=== PATIENT | male | born 1935 | race Caucasian/White ===

== ENCOUNTER 2016-12-12 11:44 | Observation (INO) | payer OTHER ==
[2016-12-12] MEDS ORDERED: SODIUM CHLORIDE 0.9% 10 ML FLUSH FLUSH PRN (12:02)
[2016-12-12] MEDS ORDERED: NS 1,000 ML IV ONE (12:02)
--- NOTE | 2016-12-12 12:22 | DIRPT ---
CLINICAL DATA: Syncopal episode at temple. Chest pain. EXAM: PORTABLE CHEST 1 VIEW COMPARISON: 08/15/2016 FINDINGS: Prior median sternotomy for coronary bypass. Heart is enlarged with mild vascular congestion and basilar atelectasis. 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 No definite focal pneumonia, collapse or consolidation. No edema pattern, effusion, or pneumothorax. Trachea midline. Degenerative changes and scoliosis noted of the spine. Previous left rotator cuff repair. IMPRESSION: Stable cardiomegaly with vascular congestion and basilar atelectasis. Background COPD/emphysema and postoperative findings. No interval change or acute process. Electronically Signed By: Trini Velez M.D. On: 12/12/2016 12:20
[2016-12-12 12:35] LABS: AUTOMATED BASOPHIL 0.2 % (0-2); AUTOMATED EOSINOPHIL 1.6 % (0-5); AUTOMATED LYMPH 22.2 % (17-44); AUTOMATED MONOCYTE 8.7 % (3-10); AUTOMATED NEUTROPHIL 67.3 % (45-76); MPV 9.5 fL (7.4-10.4)
[2016-12-12 12:47] LABS: BLOOD UREA NITROGEN 17 MG/DL (9-20); CALC CORRECTED 8.9 MG/DL (8.4-10.2); CALCIUM 8.7 MG/DL (8.4-10.2); CALCULATED OSMOLALITY 269 MOs/Kg (270-290); CHLORIDE 103 mEq/L (98-107); GLUCOSE 160 MG/DL (70-99); SODIUM LEVEL 137 mEq/L (137-146); TOTAL PROTEIN 6.6 G/DL (6.3-8.2)
[2016-12-12 12:49] LABS: PARTIAL THROMB. TIME 23.6 SEC (22-35); PT-INR 1.1
--- NOTE | 2016-12-12 12:52 | EDPRACDOC ---
- History of Present Illness Medications/Treatment ELECTROLYTIC ETCHER Medications ELECTROLYTIC ETCHER (Medication/ saline 500cc bolus Dose/Time) EMS Treatment ALS IV Yes HPI: MD NOTE SEEN AND EXAMINED; SYNCOPE WITHOUT SEIZURE ACTIVITY HX OF AFIB AND WAS ON ELIQUIS. STOPPED BUT UNSURE WHY; STRESS LAST AUGUST REVIEWED. 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 Witnessed syncope: some twitching and gasping. EMS states pt was nonresponsive when they got there and remained so for >10 mins, also hypotensive, and bradycardic, with SOB. Pt was clutching left side chest on arrival, but states that it only hurts him when he coughs ( chronic cough). Pt also c/o chronic numbness and tingling in bilat hands, with chronic left leg pain. Pt states he felt fine prior to syncope, denies illness sx. Med hx = Afib, HTN, hx of CABG x 4, with most recent 8 yrs ago. Last stress test 08/15/16 NEG for ischemia, EF 56%. Pt states he has recently stopped taking levothyroxin. Duration: Minutes Presyncopal phase:: Reports: None Syncopal phase:: Reports: At Rest Postsyncopal phase:: Reports: Rapid recovery Prehospital care: Reports: O2 History of: Reports: Atrial Fibrillation, Syncope Associated Signs/Symptoms: Reports: SOB <Humble Peres - Last Filed: 12/12/16 19:02> - General Information Chief Complaint: Neuro Symptoms/Deficits Stated Complaint: SYNCOPE Home Medications: Home Medications Atorvastatin Calcium [Lipitor] 20 mg PO QHS 10/18/15 Diltiazem HCl [Cardizem] 120 mg PO DAILY #90 tablet 10/18/15 Lisinopril [Prinivil] 20 mg PO DAILY 10/18/15 Amiodarone HCl [Pacerone] 200 mg PO BID 08/16/16 Aspirin [Aspirin, Chewable] 81 mg PO DAILYWM #30 tablet 08/16/16 Ibuprofen Tablet [Motrin] 600 mg PO Q6H PRN 12/12/16 Levothyroxine Sodium [Levo-T] 75 mcg PO DAILY 12/12/16 Tamsulosin HCl [Flomax] 0.4 mg PO QHS 12/12/16 Allergies/Adverse Reactions: Allergies Allergy/AdvReac Type Severity Reaction Status Date / Time No Known Allergies Allergy Verified 08/15/16 18:11 - Treatment Prior to ED Arrival Reported Medications/Treatment ELECTROLYTIC ETCHER Medications ELECTROLYTIC ETCHER (Medication/ saline 500cc bolus Dose/Time) EMS Treatment ALS IV Yes <Cristopher Cordon - Last Filed: 12/12/16 13:18> - Treatment Prior to ED Arrival Reported Medications/Treatment ELECTROLYTIC ETCHER Medications ELECTROLYTIC ETCHER (Medication/ saline 500cc bolus Dose/Time) EMS Treatment ALS IV Yes <Humble Peres - Last Filed: 12/12/16 19:02> ED Past Medical History - History Reviewed Yes Nurses notes reviewed and agree except as marked - Patient Medical History Cardiac History: Reports: Coronary Artery Disease, Atrial Fibrillation, Hypertension, Heart Attack, Cardiac Catheterization (15 years ago), CABG (2007, and R carotid endarterectomy 2007), Hypercholesterolemia, Syncope Musculoskeletal History: Reports: Arthritis Psychological History: Denies: Depression, Substance Use Disorder Systemic History: Reports: Hypothyroidism. Denies: Cancer Surgical History: Reports: Appendectomy, CABG (2007, and R carotid endarterectomy 2007), Cardiac Catheterization (15 years ago), Other (Left cornea transplant in [place] then in [place].) - Family Medical History Denies: Hypertension, Diabetes, Cancer, Stroke, Cardiac Disorders - Social Medical History Smoking Status: Never smoker Social History: Denies: Substance Use Disorder <Humble Peres - Last Filed: 12/12/16 19:02> EDM Review of Systems - Review of Systems ROS Negative Except as Marked: Yes All systems reviewed and were negative except as marked Respiratory: Shortness of Breath Cardiovascular: Syncope <Humble Peres - Last Filed: 12/12/16 19:02> - Physical Exam Last recorded Vital Signs: Last Vital Signs Temp 98.4 F 12/12/16 11:49 Pulse 47 L 12/12/16 13:12 Resp 18 12/12/16 13:12 BP 106/57 L 12/12/16 13:12 Pulse Ox 98 12/12/16 13:12 Oxygen Pulse Oxygen Saturation 98 O2 Device Nasal Cannula Oxygen Flow Rate 2 Fraction of Inspired Oxygen ( FIO2) <Cristopher Cordon - Last Filed: 12/12/16 13:18> - Physical Exam Constitutional: No apparent distress, Alert Oriented to: Time, Person, Place Last recorded Vital Signs: Last Vital Signs Temp 98.4 F 12/12/16 11:49 Pulse 49 L 12/12/16 12:22 Resp 18 12/12/16 12:22 BP 110/58 L 12/12/16 12:22 Pulse Ox 92 12/12/16 12:22 Oxygen Pulse Oxygen Saturation 92 O2 Device Nasal Cannula Oxygen Flow Rate 2 Fraction of Inspired Oxygen ( FIO2) - HEENT Head: Normal Eye Exam: negative: Conjunctival Injection, Scleral Icterus Oropharynx: negative: Drooling TMJ: Normal Nose: No Symptoms Reported Neck: Normal - Respiratory/Cardiovascular Respiratory: Normal - CTA Cardiovascular: Bradycardia - GI Tenderness: Non tender - Musculoskeletal Back: Normal Extremities: Normal - Neurologic Mood Description: Normal Thought: Coherent Perception: Normal <Humble Peres - Last Filed: 12/12/16 19:02> - Results 12/12/16 11:58 12/12/16 11:58 WBC 7.2 xk/uL (3.8-10.8) 12/12/16 11:58 RBC 4.19 xM/uL (4.70-6.10) L 12/12/16 11:58 Hgb 14.2 g/dL (14.0-18.0) 12/12/16 11:58 Hct 41.4 % (42-52) L 12/12/16 11:58 MCV 99 fL (80-94) H 12/12/16 11:58 MCH 33.8 pg (27-32) H 12/12/16 11:58 MCHC 34.2 g/dl (33-36) 12/12/16 11:58 RDW 13.5 % (11.5-14.5) 12/12/16 11:58 Plt Count 156 xk/uL (130-400) 12/12/16 11:58 MPV 9.5 fL (7.4-10.4) 12/12/16 11:58 Neut % (Auto) 67.3 % (45-76) 12/12/16 11:58 Lymph % (Auto) 22.2 % (17-44) 12/12/16 11:58 Payne % (Auto) 8.7 % (3-10) 12/12/16 11:58 Eos % (Auto) 1.6 % (0-5) 12/12/16 11:58 Baso % (Auto) 0.2 % (0-2) 12/12/16 11:58 Absolute Neuts (auto) 4.82 xk/uL (1.7-8.2) 12/12/16 11:58 Absolute Lymphs (auto) 1.58 xk/uL (0.65-4.75) 12/12/16 11:58 PT 10.9 SEC (9.2-11.2) 12/12/16 11:58 INR 1.1 12/12/16 11:58 APTT 23.6 SEC (22-35) 12/12/16 11:58 Sodium 137 mEq/L (137-146) 12/12/16 11:58 Potassium 3.9 mEq/L (3.5-5.1) 12/12/16 11:58 Chloride 103 mEq/L (98-107) 12/12/16 11:58 Carbon Dioxide 25 mMOL/L (22-33) 12/12/16 11:58 Anion Gap 13 mEq/L (8-16) 12/12/16 11:58 BUN 17 MG/DL (9-20) 12/12/16 11:58 Creatinine 1.20 MG/DL (0.66-1.25) 12/12/16 11:58 Estimated GFR (MDRD) 58 mL/min (>=60) L 12/12/16 11:58 Glucose 160 MG/DL (70-99) H 12/12/16 11:58 Calculated Osmolality 269 MOs/Kg (270-290) L 12/12/16 11:58 Calcium 8.7 MG/DL (8.4-10.2) 12/12/16 11:58 Corrected Calcium 8.9 MG/DL (8.4-10.2) 12/12/16 11:58 Total Bilirubin 0.8 MG/DL (0.2-1.3) 12/12/16 11:58 AST 19 IU/L (17-59) 12/12/16 11:58 ALT 31 IU/L (21-72) 12/12/16 11:58 Alkaline Phosphatase 74 IU/L (50-160) 12/12/16 11:58 Troponin I < 0.01 ng/mL (<.04) 12/12/16 11:58 Ttm-D-Drkptphckkd Pept 308 pg/mL (0-1800) 12/12/16 11:58 Total Protein 6.6 G/DL (6.3-8.2) 12/12/16 11:58 Albumin 3.8 G/DL (3.5-5.0) 12/12/16 11:58 Lab Results 12/12/16 12/12/16 12/12/16 11:58 11:58 11:58 WBC 7.2 RBC 4.19 L Hgb 14.2 Hct 41.4 L MCV 99 H MCH 33.8 H MCHC 34.2 RDW 13.5 Plt Count 156 MPV 9.5 Neut % (Auto) 67.3 Lymph % (Auto) 22.2 Payne % (Auto) 8.7 Eos % (Auto) 1.6 Baso % (Auto) 0.2 Absolute Neuts (auto) 4.82 Absolute Lymphs (auto) 1.58 PT 10.9 INR 1.1 APTT 23.6 Sodium 137 Potassium 3.9 Chloride 103 Carbon Dioxide 25 Anion Gap 13 BUN 17 Creatinine 1.20 Estimated GFR (MDRD) 58 L Glucose 160 H Calculated Osmolality 269 L Calcium 8.7 Corrected Calcium 8.9 Total Bilirubin 0.8 AST 19 ALT 31 Alkaline Phosphatase 74 Troponin I < 0.01 Eui-K-Ogjlfumuicm Pept 308 Total Protein 6.6 Albumin 3.8 <Cristopher Cordon - Last Filed: 12/12/16 13:18> - Results 12/12/16 11:58 12/12/16 11:58 WBC 7.2 xk/uL (3.8-10.8) 12/12/16 11:58 RBC 4.19 xM/uL (4.70-6.10) L 12/12/16 11:58 Hgb 14.2 g/dL (14.0-18.0) 12/12/16 11:58 Hct 41.4 % (42-52) L 12/12/16 11:58 MCV 99 fL (80-94) H 12/12/16 11:58 MCH 33.8 pg (27-32) H 12/12/16 11:58 MCHC 34.2 g/dl (33-36) 12/12/16 11:58 RDW 13.5 % (11.5-14.5) 12/12/16 11:58 Plt Count 156 xk/uL (130-400) 12/12/16 11:58 MPV 9.5 fL (7.4-10.4) 12/12/16 11:58 Neut % (Auto) 67.3 % (45-76) 12/12/16 11:58 Lymph % (Auto) 22.2 % (17-44) 12/12/16 11:58 Payne % (Auto) 8.7 % (3-10) 12/12/16 11:58 Eos % (Auto) 1.6 % (0-5) 12/12/16 11:58 Baso % (Auto) 0.2 % (0-2) 12/12/16 11:58 Absolute Neuts (auto) 4.82 xk/uL (1.7-8.2) 12/12/16 11:58 Absolute Lymphs (auto) 1.58 xk/uL (0.65-4.75) 12/12/16 11:58 Sodium 137 mEq/L (137-146) 12/12/16 11:58 Potassium 3.9 mEq/L (3.5-5.1) 12/12/16 11:58 Chloride 103 mEq/L (98-107) 12/12/16 11:58 Carbon Dioxide 25 mMOL/L (22-33) 12/12/16 11:58 Anion Gap 13 mEq/L (8-16) 12/12/16 11:58 BUN 17 MG/DL (9-20) 12/12/16 11:58 Creatinine 1.20 MG/DL (0.66-1.25) 12/12/16 11:58 Estimated GFR (MDRD) 58 mL/min (>=60) L 12/12/16 11:58 Glucose 160 MG/DL (70-99) H 12/12/16 11:58 Calculated Osmolality 269 MOs/Kg (270-290) L 12/12/16 11:58 Calcium 8.7 MG/DL (8.4-10.2) 12/12/16 11:58 Corrected Calcium 8.9 MG/DL (8.4-10.2) 12/12/16 11:58 Total Bilirubin 0.8 MG/DL (0.2-1.3) 12/12/16 11:58 AST 19 IU/L (17-59) 12/12/16 11:58 ALT 31 IU/L (21-72) 12/12/16 11:58 Alkaline Phosphatase 74 IU/L (50-160) 12/12/16 11:58 Total Protein 6.6 G/DL (6.3-8.2) 12/12/16 11:58 Albumin 3.8 G/DL (3.5-5.0) 12/12/16 11:58 Lab Results 12/12/16 12/12/16 11:58 11:58 WBC 7.2 RBC 4.19 L Hgb 14.2 Hct 41.4 L MCV 99 H MCH 33.8 H MCHC 34.2 RDW 13.5 Plt Count 156 MPV 9.5 Neut % (Auto) 67.3 Lymph % (Auto) 22.2 Payne % (Auto) 8.7 Eos % (Auto) 1.6 Baso % (Auto) 0.2 Absolute Neuts (auto) 4.82 Absolute Lymphs (auto) 1.58 Sodium 137 Potassium 3.9 Chloride 103 Carbon Dioxide 25 Anion Gap 13 BUN 17 Creatinine 1.20 Estimated GFR (MDRD) 58 L Glucose 160 H Calculated Osmolality 269 L Calcium 8.7 Corrected Calcium 8.9 Total Bilirubin 0.8 AST 19 ALT 31 Alkaline Phosphatase 74 Total Protein 6.6 Albumin 3.8 - EKG EKG #1 EKG Time: 11:54 -: Yes EKG interpreted by me Rate: bpm: 50 Rhythm: SB Block: None Hypertrophy: None ST: Normal Comparison: 08/15/16 (Afib) - Diagnostic Imaging Chest Image interpreted by: Radiologist EXAM: PORTABLE CHEST 1 VIEW COMPARISON: 08/15/2016 FINDINGS: Prior median sternotomy for coronary bypass. Heart is enlarged with mild vascular congestion and basilar atelectasis. 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 No definite focal pneumonia, collapse or consolidation. No edema pattern, effusion, or pneumothorax. Trachea midline. Degenerative changes and scoliosis noted of the spine. Previous left rotator cuff repair. IMPRESSION: Stable cardiomegaly with vascular congestion and basilar atelectasis. Background COPD/emphysema and postoperative findings. No interval change or acute process. Electronically Signed By: Trini Velez M.D. On: 12/12/2016 12:20 <Humble Peres - Last Filed: 12/12/16 19:02> <Cristopher Cordon - Last Filed: 12/12/16 13:18> - Departure Disposition: Admit IP To This Hospital Decision to Admit Time: 14:03 (Dr Lucas) Decision to admit date: 12/12/16 Decision to admit: from ED <Humble Peres - Last Filed: 12/12/16 19:02> - Departure Condition: Stable Final Diagnosis: Syncope Qualifiers: Syncope type: unspecified Qualified Code(s): R55 - Syncope and collapse Hypothyroid Qualifiers: Hypothyroidism type: unspecified Qualified Code(s): E03.9 - Hypothyroidism, unspecified
[2016-12-12] MEDS: NS 1,000 ML IV SCH (14:30)
--- NOTE | 2016-12-12 14:45 | HISTPHYS ---
- Chief Complaint pt arrives via EMS with c/o syncope at [facility], unresponsive for greater than 10 minutes, family reports some shaking while unconscious, EMS said pt started to regain consciousness en route, pt c/o left sided chest discomfort, bilateral hand numbness, bilateral leg pain, generalized weakness - History of Present Illness C/o syncope >10 mins around 11:15am today. Witnessed syncope: some twitching and gasping. EMS states pt was nonresponsive when they got there and remained so for >10 mins, also hypotensive, and bradycardic, with SOB. Pt was clutching left side chest on arrival, but states that it only hurts him when he coughs ( chronic cough). Pt also c/o chronic numbness and tingling in bilat hands, with chronic left leg pain. Pt states he felt fine prior to syncope, denies illness sx. Med hx = Afib, HTN, hx of CABG x 4, with most recent 8 yrs ago. Last stress test 08/15/16 NEG for ischemia, EF 56%. Pt states he has recently stopped taking levothyroxin. Duration: Minutes Presyncopal phase:: Reports: None Syncopal phase:: Reports: At Rest Postsyncopal phase:: Reports: Rapid recovery Prehospital care: Reports: O2 History of: Reports: Atrial Fibrillation, Syncope Associated Signs/Symptoms: Reports: SOB Patient denies any per monitory symptoms whatsoever. He states his previous episodes of syncope were all with a warning. - Medical History Cardiac History: Reports: Coronary Artery Disease, Atrial Fibrillation, Hypertension, Heart Attack, Cardiac Catheterization (15 years ago), CABG (2007, and R carotid endarterectomy 2007), Hypercholesterolemia, Syncope Respiratory History: Reports: No Significant History GI/ History: Reports: No Significant History Musculoskeletal History: Reports: Arthritis Systemic History: Reports: Hypothyroidism. Denies: Cancer Psychological History: Denies: Depression, Substance Use Disorder - Surgical History Reports: Appendectomy, CABG (2007, and R carotid endarterectomy 2007), Cardiac Catheterization (15 years ago), Other (Left cornea transplant in [place] then in [place].) - Medictions/Allergies Allergies No Known Allergies Allergy (Verified 08/15/16 18:11) Home Medications Atorvastatin Calcium [Lipitor] 20 mg PO QHS 10/18/15 Diltiazem HCl [Cardizem] 120 mg PO DAILY #90 tablet 10/18/15 Lisinopril [Prinivil] 20 mg PO DAILY 10/18/15 Amiodarone HCl [Pacerone] 200 mg PO BID 08/16/16 Aspirin [Aspirin, Chewable] 81 mg PO DAILYWM #30 tablet 08/16/16 Ibuprofen Tablet [Motrin] 600 mg PO Q6H PRN 12/12/16 Levothyroxine Sodium [Levo-T] 75 mcg PO DAILY 12/12/16 Tamsulosin HCl [Flomax] 0.4 mg PO QHS 12/12/16 - Family History Denies: Hypertension, Diabetes, Cancer, Stroke, Cardiac Disorders - Social History Travel Outside of [place] in the Last 3 Months?: No Lives: Alone Smoking Status: Former smoker (Smoked 1 and half packs a day. Lately he smokes 1 cigar a day) Social History: Denies: Alcohol Use, Substance Use Disorder - Review of Systems Constitutional: No Symptoms Reported (No Fever, chills, wt loss/gain, diaphoresis,fatigue/malaise.) Eyes: No Symptoms Reported (No blurry vision, visual changes, eye pain, or eye redness.) Ears: No Symptoms Reported (No ear pain or discharge) Nose: No Symptoms Reported (No nasal discharge/congestion or bleeding) Mouth: No Symptoms Reported (No oropharyngeal lesions or erythema) Throat/Neck: No Symptoms Reported (No throat pain or swelling.No oropharyngeal lesions or erythema.) Respiratory: No Symptoms Reported (No cough, wheezing, or shortness of breath.) Cardiovascular: Syncope. negative: Cyanosis, Orthopnea, Palpitations, PND Gastrointestinal: No Symptoms Reported (No abdominal pain, nausea, vomiting, diarrhea, constipation, or bloody stool.) Genitourinary: No Symptoms Reported (No dysuria or hematuria.) Neurological: No Symptoms Reported (No headache, dizziness, seizures, or focal weakness.) Musculoskeletal:: No Symptoms Reported Integumentary: No Symptoms Reported (no rashes or lesions) Allergic/Immunologic: No Symptoms Reported (no rashes or lesions) Endocrine: No Symptoms Reported (No thyroid issues, polyuria, or polydipsia.) Psychiatric: No Symptoms Reported (Fully oriented, with normal and appropriate affect.) - Physical Exam Vital Signs: Initial Vitals Temperature 98.4 F 12/12/16 11:49 Pulse Rate 50 L 12/12/16 11:49 Respiratory Rate 18 12/12/16 11:49 Blood Pressure 99/51 L 12/12/16 11:49 Pulse Oxygen Saturation 91 12/12/16 11:49 Constitutional: Alert (Awake, Fully oriented. Normal and appropriate affect.Well appearing. Well nourished.), No apparent distress Oriented to: Time, Person, Place - HEENT Head: Normal (normocephalic, atraumatic.), Other (No cervical lymphadenopathy. No supraclavicular lymphadenopathy. Neck: No palpable mass, supple , trachea midline.) Eye: Normal (pupils equal, reactive to light, and round; EOMI, Sclera white) Oropharynx: Normal (Pharynx: Moist without exudate,Gums-no swelling, No oropharyngeal lesions or erythema, Mucous membranes are dry.) Nose: No Symptoms Reported (septum midline, Nares patent, without discharge or bleeding.) Respiratory: Normal - CTA (Clear to auscultation bilaterally. No wheezing, rales , rhonchi. Chest wall movements are symmetric. No use of accessory muscles to breathe.) Cardiovascular: Normal (RRR , Normal S1, S2. No murmurs, rubs, or gallops. PMI non-displaced. Carotids: no carotid bruits. No bradycardia or tachycardia. DP pulses 2+ bilaterally.) - GI Auscultation: Normal (normal active sounds) Palpation: Normal (Soft,non distended,nontender. No hepatosplenomegaly.) Tenderness: Non tender (No rebound or guarding) Arriaza's Sign: Negative - Musculoskeletal Back: Normal (Non-Tender) Extremities: Normal (Normal tone, DP pulses 2+ bilaterally, No cyanosis or edema bilaterally, FROM bilaterally.) - Integumentary Skin: Normal (Clean, dry, and intact. No rashes. No lesions.) Lymphatics: Normal (No cervical lymphadenopathy. No supraclavicular lymphadenopathy.) - Neurologic Memory Impaired: Normal Motor Function: Normal (Motor 5/5 throughout.Normal tone, Pulses 2+ No cyanosis or edema, FROM) Cranial Nerve: Normal (CN II-XII intact sensation, strength 5/5) Cerebellar: Normal (Babinski: toes downgoing bilaterally. Intact Finger to nose. Sensory grossly intact to light touch. Intact rapid alternating movements bilaterally. No pronator drift.) Mood Description: Normal (Fully oriented. Normal and appropriate affect.) Perception: Normal (Normal and appropriate affect.) - Focused CV Perfusion Exam Vital Signs: Last Vital Signs Temp 98.4 F 12/12/16 11:49 Pulse 48 L 12/12/16 14:08 Resp 18 12/12/16 14:08 BP 133/61 12/12/16 14:08 Pulse Ox 98 12/12/16 14:08 - Lab Results Laboratory Results - last 24 hr 12/12/16 12/12/16 12/12/16 11:58 11:58 11:58 WBC 7.2 RBC 4.19 L Hgb 14.2 Hct 41.4 L MCV 99 H MCH 33.8 H MCHC 34.2 RDW 13.5 Plt Count 156 MPV 9.5 Neut % (Auto) 67.3 Lymph % (Auto) 22.2 [place] % (Auto) 8.7 Eos % (Auto) 1.6 Baso % (Auto) 0.2 Absolute Neuts (auto) 4.82 Absolute Lymphs (auto) 1.58 PT 10.9 INR 1.1 APTT 23.6 Sodium 137 Potassium 3.9 Chloride 103 Carbon Dioxide 25 Anion Gap 13 BUN 17 Creatinine 1.20 Estimated GFR (MDRD) 58 L Glucose 160 H Calculated Osmolality 269 L Calcium 8.7 Corrected Calcium 8.9 Total Bilirubin 0.8 AST 19 ALT 31 Alkaline Phosphatase 74 Troponin I < 0.01 Miv-E-Qflzhbsethh Pept 308 Total Protein 6.6 Albumin 3.8 - Diagnostic Findings EXAM: PORTABLE CHEST 1 VIEW COMPARISON: 08/15/2016 FINDINGS: Prior median sternotomy for coronary bypass. Heart is enlarged with mild vascular congestion and basilar atelectasis. 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 No definite focal pneumonia, collapse or consolidation. No edema pattern, effusion, or pneumothorax. Trachea midline. Degenerative changes and scoliosis noted of the spine. Previous left rotator cuff repair. IMPRESSION: Stable cardiomegaly with vascular congestion and basilar atelectasis. Background COPD/emphysema and postoperative findings. No interval change or acute process. Electronically Signed By: Trini Velez M.D. On: 12/12/2016 12:20 EKG personally viewed by me shows a junctional rhythm at 50 beats per minute - Assessment (1) Syncope R55 - SYNCOPE AND COLLAPSE Acute Present on Admission: Yes Qualifiers: Syncope type: unspecified Encounter type: E Qualified Code(s): R55 - Syncope and collapse Patient with long history of coronary disease with an episode of recurrent syncope that is different from the past. This episode the patient did not have any premonitory symptoms he simply passed out and was out for approximately 10 minutes. He will be admitted to the hospital and placed on telemetry monitoring. Am concerned that he may have had a pulmonary embolism the D-dimer has been ordered. Monitor him very closely have discussed the case with Dr. MITCHELL who will evaluate the patient. (2) Hypotension I95.9 - HYPOTENSION, UNSPECIFIED Acute Present on Admission: Yes Qualifiers: Hypotension type: H Trimester: T There is no evidence of orthostatic hypotension. Blood pressure remains relatively low. Patient is on diltiazem and amiodarone. I will decrease dose of diltiazem. (3) Hypoxemia R09.02 - HYPOXEMIA Acute Present on Admission: Yes Patient's O2 sats low on presentation they are stable now on 2 L of oxygen will continue to monitor. (4) Atrial fibrillation with slow ventricular response I48.91 - UNSPECIFIED ATRIAL FIBRILLATION Acute Present on Admission: Yes Not a candidate for anticoagulation due to frequent episodes of syncope. Will continue current therapy with amiodarone. (5) Tobacco abuse Z72.0 - TOBACCO USE Acute Present on Admission: Yes Patient states he no longer smokes but he does smoke cigars. He has stop smoking cigarettes. (6) On amiodarone therapy Z79.899 - OTHER INSTITUTIONAL CUSTODIAN (CURRENT) DRUG THERAPY Chronic Present on Admission: Yes Noted continue present care. Case Care Discussed with: Patient, Nursing Staff Total Time: Sixty-five minutes Critical Care: No [place] Time (>50% in counseling/coordination): No
[2016-12-12] MEDS ORDERED: IBUPROFEN 600 MG TAB PO PRN (15:08)
[2016-12-12] MEDS ORDERED: ACETAMINOPHEN 325 MG/TAB TABLET PO PRN (15:09)
[2016-12-12] MEDS ORDERED: PROMETHAZINE 25 MG/ML VIAL IV PRN (15:09)
[2016-12-12] MEDS ORDERED: Aluminum;Magnesium;Simethicone 30 ML UDC PO PRN (15:09)
[2016-12-12] MEDS ORDERED: SODIUM CHLORIDE 0.9% 3 ML FLUSH FLUSH PRN (15:09)
[2016-12-12] MEDS ORDERED: MAGNESIUM HYDROXIDE 30 ML BOTTLE PO PRN (15:09)
[2016-12-12] MEDS ORDERED: Vaccine Screening Complete SCH (17:00)
[2016-12-12] MEDS: SODIUM CHLORIDE 0.9% 3 ML FLUSH FLUSH SCH (17:53)
[2016-12-12] MEDS ORDERED: ENOXAPARIN 40 MG/0.4 ML PFS SQ SCH (18:00)
[2016-12-12] MEDS: AMIODARONE 200 MG TAB PO SCH (20:42)
[2016-12-12] MEDS ORDERED: TEMAZEPAM 15 MG CAP PO PRN (20:55)
[2016-12-12] MEDS ORDERED: ATORVASTATIN 20 MG TAB PO SCH (21:00)
[2016-12-12] MEDS ORDERED: TAMSULOSIN HCL 0.4 MG CAP PO SCH (21:00)
[2016-12-13 04:29] VITALS: BMI 29.5
[2016-12-13] MEDS: NS 1,000 ML IV SCH (04:30)
[2016-12-13] MEDS: SODIUM CHLORIDE 0.9% 3 ML FLUSH FLUSH SCH (04:31)
[2016-12-13 04:56] LABS: AUTOMATED BASOPHIL 0.4 % (0-2); AUTOMATED EOSINOPHIL 1.9 % (0-5); AUTOMATED LYMPH 21.6 % (17-44); AUTOMATED MONOCYTE 9.5 % (3-10); AUTOMATED NEUTROPHIL 66.6 % (45-76); MPV 9.7 fL (7.4-10.4)
[2016-12-13 05:10] LABS: BLOOD UREA NITROGEN 15 MG/DL (9-20); CALCIUM 8.6 MG/DL (8.4-10.2); CALCULATED OSMOLALITY 267 MOs/Kg (270-290); CHLORIDE 104 mEq/L (98-107); GLUCOSE 92 MG/DL (70-99); SODIUM LEVEL 138 mEq/L (137-146)
[2016-12-13] MEDS ORDERED: LEVOTHYROXINE 75 MCG (0.075 MG) TAB PO SCH (06:00)
--- NOTE | 2016-12-13 07:32 | DIRPT ---
CLINICAL DATA: Syncope, and respiratory difficulty EXAM: PORTABLE CHEST 1 VIEW COMPARISON: 12/12/2016 and 08/15/2016. Also chest x-ray dated 10/18/2015. FINDINGS: Mild cardiomegaly is unchanged. Median sternotomy wires appear intact and stable in alignment. Mild pulmonary vascular congestion persists. Probable mild interstitial edema superimposed on a background of chronic interstitial fibrosis. No pleural effusion. No pneumothorax seen. IMPRESSION: No significant interval change compared to recent chest x-ray of 12/12/2016. Continued mild central pulmonary vascular congestion and mild interstitial edema, superimposed on a background of chronic interstitial fibrosis, suggesting mild volume overload/CHF. Electronically Signed By: Jose Gaston M.D. On: 12/13/2016 07:29
[2016-12-13] MEDS ORDERED: ASPIRIN (CHEWABLE) 81 MG TAB PO SCH (08:00)
[2016-12-13] MEDS ORDERED: LISINOPRIL 20 MG TAB PO SCH (09:00)
[2016-12-13] MEDS: AMIODARONE 200 MG TAB PO SCH (09:35)
--- NOTE | 2016-12-13 10:21 | PCM.CARDCO ---
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 He has hx of rare syncopal episodes in past. Last seen in clinic in April 2016 , was stable in NSR , no sx. Event monitor May showed only PACs, no afib, long pauses or profound bradycardia, and Eliquis was stopped. Yesterday was in [employer] with family, sitting in pew, abruptly lost consciousness and fell back into pew. Was unresponsive for approx 10 minutes, regained consciousness spontaneously. No associated chest pain, cough, dyspnea, palpitations, nausea, diaphoresis. No unusual SOB. No recent exertional sx. Lives alone, but family close by and check on him regularly. He does have hx of falls at home, none recent. Past Medical History: ASHD, parox afib, HBP Past Surgical History: CABG 2007 as noted Allergies No Known Allergies Allergy (Verified 08/15/16 18:11) Home Medications Atorvastatin Calcium [Lipitor] 20 mg PO QHS 10/18/15 Diltiazem HCl [Cardizem] 120 mg PO DAILY #90 tablet 10/18/15 Lisinopril [Prinivil] 20 mg PO DAILY 10/18/15 Amiodarone HCl [Pacerone] 200 mg PO BID 08/16/16 Aspirin [Aspirin, Chewable] 81 mg PO DAILYWM #30 tablet 08/16/16 Ibuprofen Tablet [Motrin] 600 mg PO Q6H PRN 12/12/16 Levothyroxine Sodium [Levo-T] 75 mcg PO DAILY 12/12/16 Tamsulosin HCl [Flomax] 0.4 mg PO QHS 12/12/16 Family History: no premature CAD or sudden Social History: Traveled outside the [place] in the last 3 months? No Never smoker , lives alone, famiily close Review of Systems: 10 system otherwise negative. No fever, chills, TIA/CVA sx, dizziness Physical Examination: Temperature: 98.0 F (12/13/16 07:44)HR: 62 (12/13/16 07:44)RR: 18 (12/13/16 07: 44)BP: 151/69 (12/13/16 07:44) SAT:93 (12/13/16 08:00) [] Physical Exam GEN: Elderly, overweight, NAD. VS reviewed VS: as above HEENT: no JVD, carotids normal CHEST: clear COR: RR, Gr 1/6 RONNIE R2ICS. Diastole quiet ABD: obese, non-tender, no organomegaly or mass EXTREM: no edema; rad, PT 2+ bilat SKIN: warm,d ry NEURO: alert, oriented, speech normal. No focal motor deficit or tremor LAB/DI: [] Laboratory Tests 12/12/16 12/12/16 12/12/16 11:58 14:41 17:50 WBC Hgb Hct Plt Count D-Dimer Quant (PE/DVT) 1420 H Sodium Potassium Chloride Carbon Dioxide BUN Creatinine Estimated GFR (MDRD) Troponin I < 0.01 < 0.01 12/12/16 12/13/16 12/13/16 21:30 00:50 04:20 WBC Hgb Hct Plt Count D-Dimer Quant (PE/DVT) Sodium 138 Potassium 4.7 Chloride 104 Carbon Dioxide 27 BUN 15 Creatinine 1.10 Estimated GFR (MDRD) > 60 Troponin I < 0.01 < 0.01 12/13/16 04:20 WBC 7.2 Hgb 13.2 L Hct 39.1 L Plt Count 131 D-Dimer Quant (PE/DVT) Sodium Potassium Chloride Carbon Dioxide BUN Creatinine Estimated GFR (MDRD) Troponin I EKG: sinus bradycardia 50/min., poor anterior R Progression. No acute changes tele: sinus shena, no rare PACs, no afib. lowest HRs 47 in bed. ECHO 10/2015: mild concentric LVH, aortic sclerosis, no significant valve disedase Perf STress at 08/2016 for chest/shoulder pain: normal perf scans, EF 56% IMPRESSION: rare syncopal episodes - ? rare pauses or profound bradycardia, possibly exacerbated by sinus node suppressants ( diltiazem and amiodarone) - Recommendations REC: d/c diltiazem; d/c amiodarone for now will progress activity, discharge soon if stable, will arrange another outpt event monitor, and f/u with mi Dec 29 as previously scheduled. Event monitor placement: [facility]; Dec 16 1:45 PM
[2016-12-13 11:02] VITALS: BP 126/56; TEMP 98.1
--- NOTE | 2016-12-13 13:18 | PCM.DCS92 ---
- Final/Secondary Discharge Diagnosis (1) Syncope Acute R55 - SYNCOPE AND COLLAPSE Present on Admission: Yes unspecified E R55 - Syncope and collapse Comment: Patient with long history of coronary disease with an episode of recurrent syncope that is different from the past. This episode the patient did not have any premonitory symptoms he simply passed out and was out for approximately 10 minutes. He will be admitted to the hospital and placed on telemetry monitoring. Am concerned that he may have had a pulmonary embolism the D-dimer has been ordered. Monitor him very closely have discussed the case with Dr. MITCHELL who will evaluate the patient. (2) Hypotension Acute I95.9 - HYPOTENSION, UNSPECIFIED Present on Admission: Yes H T Comment: There is no evidence of orthostatic hypotension. Blood pressure remains relatively low. Patient is on diltiazem and amiodarone. I will decrease dose of diltiazem. (3) Hypoxemia Acute R09.02 - HYPOXEMIA Present on Admission: Yes Comment: Patient's O2 sats low on presentation they are stable now on 2 L of oxygen will continue to monitor. (4) Atrial fibrillation with slow ventricular response Acute I48.91 - UNSPECIFIED ATRIAL FIBRILLATION Present on Admission: Yes Comment: Not a candidate for anticoagulation due to frequent episodes of syncope. Will continue current therapy with amiodarone. (5) Tobacco abuse Acute Z72.0 - TOBACCO USE Present on Admission: Yes Comment: Patient states he no longer smokes but he does smoke cigars. He has stop smoking cigarettes. (6) On amiodarone therapy Chronic Z79.899 - OTHER HALFWAY (CURRENT) DRUG THERAPY Present on Admission: Yes Comment: Noted continue present care. Discharge Disposition: Home Discharge Condition: Stable Cognitive Discharge Status: Unimpaired Fuctional Discharge Status: Independent Physician Follow up/Referrals: Liborio Antony MD [Primary Care Provider] - One Week Montrell Richards MD [Staff Physician] - Keep Scheduled Appt Home Medications / New Prescriptions: Continue Lisinopril [Prinivil] 20 mg PO DAILY Atorvastatin Calcium [Lipitor] 20 mg PO QHS Aspirin [Aspirin, Chewable] 81 mg PO DAILYWM #30 tablet Tamsulosin HCl [Flomax] 0.4 mg PO QHS Ibuprofen Tablet [Motrin] 600 mg PO Q6H PRN PRN Reason: Pain Levothyroxine Sodium [Levo-T] 75 mcg PO DAILY Discontinued Diltiazem HCl [Cardizem] 120 mg PO DAILY #90 tablet Amiodarone HCl [Pacerone] 200 mg PO BID Laboratory Results - last 24 hr 12/12/16 12/12/16 12/12/16 11:58 11:58 14:41 WBC RBC Hgb Hct MCV MCH MCHC RDW Plt Count MPV Neut % (Auto) Lymph % (Auto) Banner % (Auto) Eos % (Auto) Baso % (Auto) Absolute Neuts (auto) Absolute Lymphs (auto) D-Dimer Quant (PE/DVT) 1420 H Sodium Potassium Chloride Carbon Dioxide Anion Gap BUN Creatinine Estimated GFR (MDRD) Glucose Calculated Osmolality Calcium Magnesium Troponin I < 0.01 TSH 15.10 H 12/12/16 12/12/16 12/13/16 17:50 21:30 00:50 WBC RBC Hgb Hct MCV MCH MCHC RDW Plt Count MPV Neut % (Auto) Lymph % (Auto) Banner % (Auto) Eos % (Auto) Baso % (Auto) Absolute Neuts (auto) Absolute Lymphs (auto) D-Dimer Quant (PE/DVT) Sodium Potassium Chloride Carbon Dioxide Anion Gap BUN Creatinine Estimated GFR (MDRD) Glucose Calculated Osmolality Calcium Magnesium Troponin I < 0.01 < 0.01 < 0.01 TSH 12/13/16 12/13/16 12/13/16 04:20 04:20 04:20 WBC 7.2 RBC 3.92 L Hgb 13.2 L Hct 39.1 L MCV 100 H MCH 33.7 H MCHC 33.8 RDW 13.6 Plt Count 131 MPV 9.7 Neut % (Auto) 66.6 Lymph % (Auto) 21.6 Banner % (Auto) 9.5 Eos % (Auto) 1.9 Baso % (Auto) 0.4 Absolute Neuts (auto) 4.75 Absolute Lymphs (auto) 1.51 D-Dimer Quant (PE/DVT) Sodium 138 Potassium 4.7 Chloride 104 Carbon Dioxide 27 Anion Gap 12 BUN 15 Creatinine 1.10 Estimated GFR (MDRD) > 60 Glucose 92 Calculated Osmolality 267 L Calcium 8.6 Magnesium 2.10 Troponin I TSH O2 Device: Room Air Oxygen to be used after Discharge: Continuous Diet at Discharge: Cardiac, Heart Healthy, Low Salt Activity: No Restrictions, As Tolerated - DC Summary Notes Hospital Course Note:: Discharge summary on patient named HANSEL DUFF admitted to [facility] on 12/12/16 by Latricia Erickson MD. Date of discharge is []. Fatou gentleman admitted to our facility with bradycardia an episode of syncope. He has had multiple syncopal episodes at home but todays was [facility]. He has worn a Holter monitor in the past. He was seen in Cardiology it was decided that he would wear a event monitor at discharge. Patient's bradycardia has improved since admission to the hospital. His diltiazem and amiodarone have been discontinued at discharge. He has reached maximal benefit of hospitalization. Total Time: 45 min Code: 40487 (>30min.) - Physical Exam Vital Signs: Last Vital Signs Temp 98.1 F 12/13/16 11:01 Pulse 58 L 12/13/16 11:01 Resp 18 12/13/16 11:01 BP 126/56 L 12/13/16 11:01 Pulse Ox 94 12/13/16 11:01 Oxygen Pulse Oxygen Saturation 94 O2 Device Room Air Oxygen Flow Rate Fraction of Inspired Oxygen ( FIO2) Constitutional: No apparent distress, Alert Oriented to: Time, Person, Place - HEENT Head: Normal Eye: negative: Conjunctival Injection, Scleral Icterus Oropharynx: negative: Drooling TMJ: Normal Nose: No Symptoms Reported - Respiratory/Cardiovascular Respiratory: Normal - CTA Cardiovascular: Bradycardia - GI Tenderness: Non tender - Musculoskeletal Back: Normal Extremities: Normal - Integumentary Skin: Normal (Clean, dry, and intact. No rashes. No lesions.) Lymphatics: Normal (No cervical lymphadenopathy. No supraclavicular lymphadenopathy.) - Neurologic Memory Impaired: Normal Motor Function: Normal (Motor 5/5 throughout.Normal tone, Pulses 2+ No cyanosis or edema, FROM) Cranial Nerve: Normal (CN II-XII intact sensation, strength 5/5) Mood Description: Normal Thought: Coherent Perception: Normal - Other Exam Other Exam Findings: Laboratory Results - last 24 hr 12/12/16 12/12/16 12/12/16 11:58 11:58 14:41 WBC RBC Hgb Hct MCV MCH MCHC RDW Plt Count MPV Neut % (Auto) Lymph % (Auto) Banner % (Auto) Eos % (Auto) Baso % (Auto) Absolute Neuts (auto) Absolute Lymphs (auto) D-Dimer Quant (PE/DVT) 1420 H Sodium Potassium Chloride Carbon Dioxide Anion Gap BUN Creatinine Estimated GFR (MDRD) Glucose Calculated Osmolality Calcium Magnesium Troponin I < 0.01 TSH 15.10 H 12/12/16 12/12/16 12/13/16 17:50 21:30 00:50 WBC RBC Hgb Hct MCV MCH MCHC RDW Plt Count MPV Neut % (Auto) Lymph % (Auto) Banner % (Auto) Eos % (Auto) Baso % (Auto) Absolute Neuts (auto) Absolute Lymphs (auto) D-Dimer Quant (PE/DVT) Sodium Potassium Chloride Carbon Dioxide Anion Gap BUN Creatinine Estimated GFR (MDRD) Glucose Calculated Osmolality Calcium Magnesium Troponin I < 0.01 < 0.01 < 0.01 TSH 12/13/16 12/13/16 12/13/16 04:20 04:20 04:20 WBC 7.2 RBC 3.92 L Hgb 13.2 L Hct 39.1 L MCV 100 H MCH 33.7 H MCHC 33.8 RDW 13.6 Plt Count 131 MPV 9.7 Neut % (Auto) 66.6 Lymph % (Auto) 21.6 Banner % (Auto) 9.5 Eos % (Auto) 1.9 Baso % (Auto) 0.4 Absolute Neuts (auto) 4.75 Absolute Lymphs (auto) 1.51 D-Dimer Quant (PE/DVT) Sodium 138 Potassium 4.7 Chloride 104 Carbon Dioxide 27 Anion Gap 12 BUN 15 Creatinine 1.10 Estimated GFR (MDRD) > 60 Glucose 92 Calculated Osmolality 267 L Calcium 8.6 Magnesium 2.10 Troponin I TSH EXAM: PORTABLE CHEST 1 VIEW COMPARISON: 12/12/2016 and 08/15/2016. Also chest x-ray dated 10/18/2015. FINDINGS: Mild cardiomegaly is unchanged. Median sternotomy wires appear intact and stable in alignment. Mild pulmonary vascular congestion persists. Probable mild interstitial edema superimposed on a background of chronic interstitial fibrosis. No pleural effusion. No pneumothorax seen. IMPRESSION: No significant interval change compared to recent chest x-ray of 12/12/2016. Continued mild central pulmonary vascular congestion and mild interstitial edema, superimposed on a background of chronic interstitial fibrosis, suggesting mild volume overload/CHF. Electronically Signed By: Jose Gaston M.D. On: 12/13/2016 07:29
[2016-12-13 14:28] VITALS: PULSE 57
== END 2016-12-13 14:42 | disposition home or self-care (01) ==
LOC: ED 11:44 → INTOOBSV 15:09 → PCU 15:09
PROVIDERS: ADMIT Hospitalist; ATTEND Hospitalist
DX: R55 Syncope and collapse (principal); I95.9 Hypotension, unspecified; R09.02 Hypoxemia; I48.91 Unspecified atrial fibrillation; Z79.899 Other long term (current) drug therapy; F17.290 Nicotine dependence, other tobacco product, uncomplicated; I48.0 Paroxysmal atrial fibrillation; Z95.1 Presence of aortocoronary bypass graft; I10 Essential (primary) hypertension; Z79.82 Long term (current) use of aspirin; E03.9 Hypothyroidism, unspecified; I25.2 Old myocardial infarction; R06.02 Shortness of breath
CPT/HCPCS: 36415; 71010; 80048; 80053; 83735; 83880; 84443; 84484; 85025; 85379; 85610; 85730; 93005; 96360; 96361; 96372; 99285; 99406; A9270; G0237; G0378; J1650; J3490